=== PATIENT | male | born 1985 | race Caucasian/White ===

== ENCOUNTER 2017-09-11 11:02 | Day surgery (SDC) | payer BC ==
[~2017-09-11] VITALS: Ht 182.9 cm; Wt 100.0 kg
[2017-09-11] MEDS ORDERED: LIDOCAINE 1%, 2ML ONE (11:26)
[2017-09-11] MEDS ORDERED: NO MEDS PER PT (11:30)
[2017-09-11] MEDS ORDERED: LACTATED RINGERS 1,000 ML IV SCH (11:32)
[2017-09-11 11:34] VITALS: BP 147/93
[2017-09-11] MEDS ORDERED: LIDOCAINE 1%, 2ML SQ PRN (12:00)
[2017-09-11] MEDS ORDERED: FENTANYL PF 250 MCG/5ML ONE (12:59)
[2017-09-11] MEDS ORDERED: MIDAZOLAM 1 MG/ML, 2ML ONE (12:59)
[2017-09-11] MEDS ORDERED: BUPIVACAINE/PF 0.25% ONE (13:05)
[2017-09-11] MEDS ORDERED: EPINEPHRINE 1 MG/ML, 1ML ONE (13:05)
[2017-09-11] MEDS ORDERED: CEFAZOLIN 1,000 MG ONE (13:37)
[2017-09-11] MEDS ORDERED: DEXAMETHASONE 4 MG/ML, 1ML ONE (13:37)
[2017-09-11] MEDS ORDERED: ONDANSETRON 2MG/ML, 2ML ONE (13:37)
[2017-09-11] MEDS ORDERED: PROPOFOL 10 MG/ML, 20ML ONE (13:37)
[2017-09-11] MEDS ORDERED: OXYcodone 5 MG/5 ML ORAL.SOL UDC PO PRN (14:00)
[2017-09-11] MEDS ORDERED: FENTANYL PF 100 MCG/2ML IV PRN (14:00)
[2017-09-11] MEDS ORDERED: ACETAMINOPHEN 325 MG TABLET PO PRN (14:00)
[2017-09-11] MEDS ORDERED: HYDROcodone/APAP 7.5-325MG/15ML UDC PO PRN (14:00)
[2017-09-11] MEDS ORDERED: HYDROmorphone 1 MG/ML, 1ML IV PRN (14:00)
[2017-09-11] MEDS ORDERED: ONDANSETRON 2MG/ML, 2ML IVPush PRN (14:00)
[2017-09-11] MEDS ORDERED: BUPIVACAINE/PF 0.25% INFIL ONE (14:05)
[2017-09-11] MEDS ORDERED: EPINEPHRINE 1 MG/ML, 1ML INFIL ONE (14:06)
== END 2017-09-11 17:20 ==
LOC: OUT 11:02
PROVIDERS: ATTEND Orthopaedic Surgery
DX: S46.211A Strain of muscle, fascia and tendon of other parts of biceps, right arm, initial encounter (principal); X50.9XXA Other and unspecified overexertion or strenuous movements or postures, initial encounter; Y93.89 Activity, other specified; Y92.89 Other specified places as the place of occurrence of the external cause; Y99.8 Other external cause status
CPT/HCPCS: 24342; J0171; J0690; J1100; J2250; J2405; J2704; J3010; J3490; J7120